=== PATIENT | male | born 1990 | race Caucasian/White ===

== ENCOUNTER 2024-10-22 15:31 | Emergency (ER) | payer OTHER, SELFPAY ==
[2024-10-22 15:39] VITALS: BP 120/87; PULSE 85; RESP 16; TEMP 36.8; O2SAT 100
[2024-10-22 17:44] VITALS: BP 130/95; PULSE 79; RESP 18; O2SAT 100
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
--- OUTSIDE RECORDS SUMMARY | 2024-10-22 18:14 | XMS_ITS | Clinical Summary ---
Author Organization [facility] Address [facility] [place] [address] Care Team Providers Care Shirt Finisher Name Role Phone Unavailable Primary Care Provider Unavailabl e Allergies Active Allergy Reactions Criticality Noted Date Comments Poison Amanda Extract Rash Low 09/15/2022 Poison [place] Extract Rash Low 09/15/2022 Sumac Rash Low 09/15/2022 Medications clindamycin (CLEOCIN T) 1 % lotion APPLY A THIN FILM TO AFFECTED AREA AFTER WASHING TO FACE TWICE DAILY 05/29/2022 Active busPIRone (BUSPAR) 5 MG tabletIndicatio ns:Severe anxiety with panic Take 1 tablet (5 mg total) by mouth 2 (two) times daily. 90 tablet 10/03/2022 Active cariprazine (VRAYLAR) 1.5 MG capsuleIndicati ons:Mood disorder Take 1 capsule (1.5 mg total) by mouth daily. 30 capsule 10/05/2022 Active Active Problems Problem Noted Date Diagnosed Date History of rectal bleeding 01/30/2022 Derangement of left knee 10/12/2020 Hypertriglyceridemia 07/16/2019 Depression with anxiety 04/10/2017 Mood disorder 07/16/2013 Resolved Problems Problem Noted Date Diagnosed Date Resolved Date Cervical strain, acute, initial encounter 07/11/2021 09/15/2022 Atypical chest pain 05/10/2021 09/16/19 Acute medial meniscal tear, left, initial encounter 11/04/2020 09/15/2022 Overview (09/15/2022): Added automatically from request for surgery [id number] Hypertensive disorder 06/08/20202022 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/08/2020 09/15/2022 Insomnia 04/10/2017 09/15/2022 Wears glasses 04/10/2017 09/18/2022 Immunizations Name Administration Dates Next Due Attenuvax Sc 03/01/1990 Dt (1-<7 Y.O.) 02/11/1990,02/23/1989,1988 Dtap (Acel-Immune) 02/15/1993,1988 Hepatitis A (Havrix [address]) 08/26/2017 Hepatitis B Pediatric 07/13/1999,03/02/1999,05/16 Hepatitis B Vaccine Adult 08/26/2017 Hib (Generic) 02/11/1990 Influenza (Generic) 03/31/2015 Influenza Adult (Generic) 05/29/2022,07/2020,04/09/2020,05/02/2019,0 10/18/2018 MMR (MMRII) 11/06/1989 Measles/Rubella 04/20/1994 Polio Opv (Generic) 02/15/1993,02/11/1990,1988,1988 Td (TDVAX) 08/15/1999 Tdap (Generic) 07/19/2021,07/16/2011 Family History Medical History Relation Comments Adjustment Disorder with Mixed Anxiety and Depre ssed Mood Father Anxiety Father Depression Father Heart Attack Father Hypertension Father Throat cancer Father bipolar Father Anxiety Mother Hyperlipidemia Mother Hypertension Mother Aftab syndrome Sister 1 Anxiety Sister 2 Depression Sister 2 bipolar Sister 2 Relation Status Comments Father Mother Alive Sister 1 Alive Sister 2 Alive Social History Tobacco Use Types Packs/Day Years Used Date Smoking Tobacco: Never Smokeless Tobacco: Never Tobacco Cessation:Counseling Given: Not Answered PHQ-2 Answer Date Recorded Patient Health Questionnaire-2 Score 5 10/03/2022 Sex and Gender Information Value Date Recorded Sex Assigned at Not on file Legal Sex Male 6:30 PM CDT Gender Identity Not on file Sexual Orientation Not on file Last Filed Vital Signs Vital Sign Reading Time Taken Comments Blood Pressure 130/82 10/03/2022 10:45 AM CDT Pulse 84 10/03/2022 10:45 AM CDT Temperature 35.9 C (96.7 F) 10/03/2022 10:45 AM CDT Respiratory Rate 18 10/03/2022 10:45 AM CDT Oxygen Saturation 100% 10/03/2022 10:45 AM CDT Inhaled Oxygen Concentration - - Weight 119.3 kg (263 lb) 10/03/2022 10:45 AM CDT Height 185.4 cm (6' 1 ) 10/03/2022 10:45 AM CDT Body Mass Index 34.7 10/03/2022 10:45 AM CDT Plan of Treatment Health Maintenance Due Date Last Done Comments Annual Physical 1991 Hepatitis C 2006 COVID-19 Vaccine ( season) 2024 07/22/2022, 07/06/2021, 11/04/2020, Additional history exists PHQ-2 (Physician [place]) 07/16/2024 DTaP, Tdap and Td Vaccines (6 - Td or Tdap) 07/19/2031 07/19/2021, 07/16/2011, 08/15/1999, Additional history exists Hepatitis B Vaccines Completed 08/26/2017, 07/13/1999, 03/02/1999, Additional history exists HPV Vaccines Aged Out No longer eligi ble based on patient's age to complete this topic Meningococcal B Vaccine Aged Out No l onger eligible based on patient's age to complete this topic Meningococcal Vaccine Aged Out No eb casper eligible based on patient's age to complete this topic Pneumococcal Vaccine: Pediatrics (0 to 5 Years) and At-Risk Patients (6 to 64 Years) Aged Out No longer eligible based on patient's age to complete this topic RSV Immunizations Under 20 Months Aged Out No longer eligible based on patient's age to complete this topic Insurance [facility]
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
[2024-10-22] MEDS: KETOROLAC 30 MG/ML VIAL (*BKC) IM (19:24)
[2024-10-22] MEDS: HYDROcodone/acetaminophen (*CRX) 5-325 MG TABLET 1 TAB PO (19:30)
== END 2024-10-22 19:37 | disposition home or self-care (01) ==
PROVIDERS: Emergency Provider Student in an Organized Health Care Education/Training Program
DX: M54.2 Cervicalgia (principal); M54.50 Low back pain, unspecified; I10 Essential (primary) hypertension; V47.0XXA Car driver injured in collision with fixed or stationary object in nontraffic accident, initial encounter
CPT/HCPCS: 99283; A9270; J1885